=== PATIENT | female | born 1965 | race Caucasian/White ===

== ENCOUNTER 2016-05-30 21:51 | Emergency (ER) | payer OTHER ==
[2016-05-30 20:57] LABS: BASOPHIL# 0.1 X10e3 (0-0.3); BASOPHIL% 1.1 % (0-2.5); DIFF IND NO; EOSINOPHIL# 0.5 X10e3 (0-0.7); HEMOGLOBIN 12.3 gm/dL (12.0-16.0); LYMPHOCYTE# 3.2 X10e3 (1.0-3.5); LYMPHOCYTE% 27.1 % (17.0-45.0); MEAN CELL VOLUME 86.9 FL (83-96); MEAN CORPUSCULAR HEMOGLOBIN 28.1 PG (28-34); MEAN CORPUSCULAR HGB CONC 32.3 g/dL (30-36); MEAN PLATELET VOLUME 8.8 FL (6.5-11.5); MONOCYTE# 0.9 X10e3 (0-1.0); MONOCYTE% 7.3 % (3.0-12.0); NEUTROPHIL# 7.3 X10e3 (1.5-7.1); NEUTROPHIL% 60.5 % (40-75); PLATELET COUNT 307 X10e3 (140-420); RED BLOOD COUNT 4.38 X10e (3.90-5.30); RED CELL DISTRIBUTION WIDTH 13.3 % (11.0-15.5)
[2016-05-30 21:25] LABS: ALBUMIN SERUM 3.5 g/dL (3.5-5.0); BILIRUBIN, DIRECT 0.1 mg/dL (0.0-0.2); BILIRUBIN,INDIRECT 0.3 mg/dL (0.0-0.9); BILIRUBIN,TOTAL 0.4 mg/dL (0.2-2.0); CALCIUM SERUM 9.1 mg/dL (8.4-10.2); GLOM FILT RATE Estimated 66.1 mL/min (>60); POTASSIUM 3.6 mmol/L (3.5-5.1); PROTEIN TOTAL SERUM 7.1 g/dL (6.0-8.3)
[~2016-05-30 21:51] MED LIST: CYMBALTA30 MG PO; DESYREL50 MG PO; DIOVAN160 MG PO; FLEXERIL PO; GABAPENTIN300 MG PO; LEVAQUIN PO; LEVEMIR100 UNITS/ SUBQ; LISINOPRIL-HCTZ1 T19 PO; OMEPRAZOLE40 M1 PO; TIZANIDINE HCL2 MG PO; TOPAMAX PO
[2016-05-30 23:54] LABS: URINE SOURCE CLEAN CATCH
[2016-05-30 23:59] LABS: URINE APPEARANCE CLEAR; URINE BILIRUBIN NEG (NEG); URINE BLOOD NEG (NEG); URINE COLOR YELLOW; URINE GLUCOSE >1000 MG/DL (NEG); URINE KETONE NEG (NEG); URINE LEUKOCYTE ESTERASE NEG (NEG); URINE NITRATE NEG (NEG); URINE PROTEIN NEG (NEG); URINE SPECIFIC GRAVITY 1.031 (1.003-1.035); URINE UROBILINOGEN 0.2 MG/DL (NEG)
[2016-05-31 00:02] LABS: CULTURE INDICATED? NO
== END 2016-05-31 01:28 | disposition home or self-care (01) ==
LOC: CED 21:51
PROVIDERS: Emergency Medicine
DX: S93.402A Sprain of unspecified ligament of left ankle, initial encounter (principal); X58.XXXA Exposure to other specified factors, initial encounter; Y93.67 Activity, basketball; Y92.9 Unspecified place or not applicable
CPT/HCPCS: 29515; 74176; 80048; 80076; 81003; 82150; 82553; 83690; 83880; 84484; 84703; 85025; 96372; 99283; J0500; J1885; J2270; J2405

== ENCOUNTER 2016-06-02 04:36 | Emergency (ER) | payer OTHER ==
--- NOTE | ~2016-06-02 | EKG ---
PATIENT: RIK CORREIA UNIT #: [id number] Ventricular Rate: 101 BPM Atrial Rate: 101 BPM P-R Interval: 176 ms QRS Duration: 88 ms Q-T Interval: 358 ms QTC Calculation(Bezet): 464 ms P [place]: 52 degrees Calculated R [place]: -14 degrees Calculated T [place]: 47 degrees Diagnosis Line: Sinus tachycardia Diagnosis Line: Otherwise normal ECG Diagnosis Line: Diagnosis Line: Confirmed by XAVIER ONOFRE MD ([id number]) on 06/02/2016 Diagnosis Line: 4:41:49 PM INTERPRETING MD: KINGSTON SANON
[2016-06-02 05:49] LABS: POC - CKMB 1.5 ng/mL (0.0-7.9); POC - TROPONIN <0.05 ng/mL (<=0.05)
[2016-06-02 06:19] LABS: BASOPHIL# 0.1 X10e3 (0-0.3); BASOPHIL% 0.4 % (0-2.5); EOSINOPHIL# 0.2 X10e3 (0-0.7); EOSINOPHIL% 1.5 % (0.0-7.0); HEMATOCRIT 34.3 % (35.0-45.0); HEMOGLOBIN 11.1 gm/dL (12.0-16.0); LYMPHOCYTE# 2.8 X10e3 (1.0-3.5); MEAN CELL VOLUME 85.9 FL (83-96); MEAN CORPUSCULAR HEMOGLOBIN 27.9 PG (28-34); MEAN CORPUSCULAR HGB CONC 32.4 g/dL (30-36); MEAN PLATELET VOLUME 8.8 FL (6.5-11.5); MONOCYTE# 1.1 X10e3 (0-1.0); MONOCYTE% 7.1 % (3.0-12.0); NEUTROPHIL# 11.3 X10e3 (1.5-7.1); PLATELET COUNT 319 X10e3 (140-420); RED CELL DISTRIBUTION WIDTH 13.5 % (11.0-15.5); WHITE BLOOD COUNT 15.5 X10e3 (4.0-10.5)
[2016-06-02 06:20] LABS: DIFF IND YES
[2016-06-02 06:38] LABS: ALBUMIN SERUM 3.3 g/dL (3.5-5.0); ALKALINE PHOSPHATASE 70 U/L (32-92); ALT (SGPT) 15 U/L (10-40); AST (SGOT) 18 U/L (10-42); BILIRUBIN, DIRECT 0.1 mg/dL (0.0-0.2); BILIRUBIN,INDIRECT 0.3 mg/dL (0.0-0.9); BILIRUBIN,TOTAL 0.4 mg/dL (0.2-2.0); BLOOD UREA NITROGEN 26 mg/dL (9-23); CALCIUM SERUM 8.5 mg/dL (8.4-10.2); CARBON DIOXIDE 25 mmol/L (22-31); CHLORIDE 107 mmol/L (100-111); CREATININE SERUM 0.8 mg/dL (0.6-1.4); GLOM FILT RATE Estimated 86.6 mL/min (>60); GLUCOSE FASTING 51 mg/dL (70-110); POTASSIUM 3.1 mmol/L (3.5-5.1); PROTEIN TOTAL SERUM 6.6 g/dL (6.0-8.3); SALICYLATE <4.0 mg/dL; SODIUM 138 mmol/L (135-145)
[2016-06-02 06:39] LABS: ACETAMINOPHEN <10 ug/mL; ALCOHOL BLOOD <5 mg/dL (0)
[2016-06-02 07:26] LABS: PLATELET ESTIMATE NORMAL (NORMAL); RBC NORMAL YES
== END 2016-06-02 08:03 ==
LOC: CED 04:36
PROVIDERS: Emergency Medicine
DX: T47.1X2A Poisoning by other antacids and anti-gastric-secretion drugs, intentional self-harm, initial encounter (principal); T46.5X2A Poisoning by other antihypertensive drugs, intentional self-harm, initial encounter; Y92.9 Unspecified place or not applicable
CPT/HCPCS: 36415; 80048; 80076; 82553; 82947; 84484; 84703; 85025; 93005; 99285; G0480

== ENCOUNTER 2016-06-02 08:34 | Inpatient (IN) | payer OTHER ==
--- NOTE | ~2016-06-02 | HP ---
Unit #: [id number] #: [id number] Patient: NONI CORREIA [id number] [place] [address] [id number] I MR#: [id number] NAME: NONI CORREIA. ROOM: P204 Age: 51 Sex: F Admission Date: 06/02/2016 : 1965 Attending Physician: Donnell Breaux M.D. Admitting Physician: Donnell Breaux M.D. HISTORY AND PHYSICAL HISTORY OF PRESENT ILLNESS Noni is a 51 year old admitted to [address] [place] [address] with depression and verbalizing wanting to hurt herself. PAST MEDICAL HISTORY 1. Morbid obesity. 2. High blood pressure. 3. Diabetes mellitus, type 2. 4. History of CHI. 5. History of TIA's by patient report. 6. History of MS, diagnosed 1999, by patient's report. PAST SURGICAL HISTORY 1. Cholecystectomy. 2. Left ear. ALLERGIES Codeine, amlodipine, metformin, trazodone, Demerol, Seroquel, Plavix. SOCIAL HISTORY She denies cigarettes, alcohol and illicit drug use. FAMILY HISTORY Medically noncontributory. REVIEW OF SYSTEMS CONSTITUTIONAL: No fever or chills. HEENT: Denies any sore throat, ear pain or runny nose. CARDIOVASCULAR: Denies chest pain, irregular heart rhythm or palpitations. CHEST: Denies shortness of breath or cough. No hemoptysis. GASTROINTESTINAL: Denies nausea, vomiting, diarrhea or chronic constipation. ENDOCRINE: Denies history of increased thirst or urination. No recent significant weight loss or gain. GENITOURINARY: Denies dysuria, frequency, or hematuria. SKIN: Denies any rashes. HEMATOLOGIC: Denies history of increased bleeding or bruising. MUSCULOSKELETAL: Denies any hot, swollen joints. No generalized muscle pain. NEUROLOGIC: Denies problems with vision or speech. No frequent, severe headaches. No numbness, tingling or weakness in any extremities. Denies loss of bladder or bowel control. Unit #: [id number] #: [id number] Patient: NONI CORREIA CURRENT MEDICATIONS 1. Diovan 160 mg daily. 2. HCTZ 25 mg daily. 3. Protonix 40 mg daily. 4. Levemir 15 units q.h.s. 5. Diclofenac 50 mg b.i.d. 6. Bentyl 20 mg q.i.d. 7. Zofran 4 mg t.i.d. 8. NovoLog per sliding scale. 9. Effexor XR 75 mg daily. 10. Milk of Magnesia p.r.n. 11. Maalox p.r.n. 12. Tylenol p.r.n. 13. Nicotine patch 14 mg daily. 14. Zaroxolyn 2.5 mg daily. 15. Maxzide 25 one tab daily. 16. Bumex 1 mg Sunday, Sunday and Sunday. 17. KCL 20 mEq Sunday, Sunday and Sunday. PHYSICAL EXAMINATION GENERAL: Alert, obese, in no apparent distress. VITAL SIGNS: Blood pressure 148/84, heart rate 80, respirations 16, temperature 98.6. WEIGHT: 247. HEIGHT: 5 feet 6 inches. SKIN: Warm and dry without rash or lesion. HEENT: Normocephalic. TMs not viewed. Oral and nasal passages clear. Conjunctivae clear. PERRLA. EOMs intact. NECK: Supple without lymphadenopathy or thyromegaly. HEART: Regular rate and rhythm without murmur. LUNGS: Clear. ABDOMEN: Soft, nontender. : Not done. EXTREMITIES: No evidence of cyanosis or clubbing. Trace to 1+ edema bilateral lower extremities. NEUROLOGICAL: Grossly within normal limits. Cranial Nerves: II: Visual presley are intact. III, IV AND : Extraocular movements are intact. Pupils are equal, round and reactive to light. V: Facial sensation is grossly normal. VII: Facial movements and expression are normal. VIII: Auditory acuity grossly intact. IX, X: Uvula is midline. Phonation is normal. XI: Patient shrugs shoulders and turns head normally. XII: Tongue protrudes in the midline. Sensory and Motor Function: Sensory and motor sensation is grossly normal. Motor: moves all extremities well. Coordination: Gait is normal. Deep Tendon Reflexes: Intact. IMPRESSION Psychiatric admission. RECOMMENDATIONS PSYCHIATRIC: Per psychiatrist. MEDICAL: 1. See no contraindications to participate in facility's activities. 2. Dc Bumex, KCL, Zaroxolyn and Maxzide. Change Zofran and Bentyl to p.r.n. Unit #: [id number] #: [id number] Patient: NONI CORREIA MEDICAL PROGNOSIS Good. MEDICAL CONDITION Stable. Dictated by... Sarah Queen P.A.-C. for Alejo Haile/ayse TD: 06/02/2016 21:14 JOB #: [id number] HISTORY AND PHYSICAL Page 1 of 1 X Sarah Queen X HISTORY AND PHYSICAL
--- NOTE | ~2016-06-02 | DS ---
Unit #: [id number] #: [id number] Patient: NONI CORREIA [id number] [facility] [address] [place] [address] [id number] I MR#: [id number] NAME: NONI CORREIA. ROOM[facility] Age: 51 Sex: F Admission Date: 06/02/2016 : 1965 Discharge Date: 06/04/2016 Attending Physician: Donnell Breaux M.D. DISCHARGE SUMMARY REASON FOR ADMISSION Noni is a 51-year-old woman who reports multiple psychosocial stressors leading to an intentional overdose on an unknown medication. After the overdose, she was medically cleared at a local emergency room and [facility] DIAGNOSTIC STUDIES LABORATORY RESULTS: Please see hospital chart. HOSPITAL COURSE Noni was admitted and placed on suicide precautions. Her home medications for her multiple medical issues were restarted. She denied the need for antidepressant treatment and declined initiation of an antidepressant medication. She did attend some psychotherapy groups and activities, and was willing for referral to outpatient therapy at the time of discharge. She was able to contract for safety at that time. DISCHARGE DIAGNOSES AXIS I: Major depression. AXIS II: No diagnosis. AXIS III: Diabetes, hypertension, obesity, gastroesophageal reflux disease, chronic pain. AXIS IV: AXIS V: DISCHARGE INSTRUCTIONS Follow up with [facility] for therapy and consideration of medication. DISCHARGE MEDICATIONS None. CONDITION AT DISCHARGE Fair. PROGNOSIS Fair to good. DIET AND ACTIVITY Per primary care doctor. Unit #: [id number] #: [id number] Patient: NONI CORREIA Dictated by... Alejo Newman/cirilo TD: 07/01/2016 12:22 JOB #: [id number] DISCHARGE SUMMARY Page 1 of 1 X Donnell Breaux MD X DISCHARGE SUMMARY
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
--- NOTE | ~2016-06-02 | CO ---
Unit #: [id number] #: [id number] Patient: NONI CORREIA [id number] [place] [address] [id number] I MR#: [id number] NAME: NONI CORREIA ROOM: P204 Age: 51 Sex: F Admission Date: 06/02/2016 : 1965 Attending Physician: Donnell Breaux M.D. Consultation Date: 06/02/2016 CONSULTATION REPORT SUBJECTIVE Noni is a 51-year-old with history of type 2 diabetes mellitus. She has been noncompliant with her diabetic medications. We have been asked to assess and treat. PLAN Start routine NovoLog sliding scale and Levemir 15 units subcu q.h.s. Monitor Accu-Cheks a.c. and h.s. Noni knows she needs to follow up with PCP. Dictated by... Sarah Queen P.A.-C. for Alejo Haile/cirilo TD: 06/05/2016 17:27 JOB #: [id number] CONSULTATION REPORT Page 1 of 1 X Sarah Queen CONSULTATION REPORT
[2016-06-03 12:30] LABS: URINE APPEARANCE CLEAR; URINE BILIRUBIN NEG (NEG); URINE BLOOD NEG (NEG); URINE COLOR YELLOW; URINE GLUCOSE >1000 MG/DL (NEG); URINE KETONE NEG (NEG); URINE LEUKOCYTE ESTERASE NEG (NEG); URINE NITRATE NEG (NEG); URINE PROTEIN NEG (NEG); URINE SPECIFIC GRAVITY 1.021 (1.003-1.035); URINE UROBILINOGEN 0.2 MG/DL (NEG)
[2016-06-03 12:50] LABS: BASOPHIL# 0.1 X10e3 (0-0.3); BASOPHIL% 0.9 % (0-2.5); EOSINOPHIL# 0.5 X10e3 (0-0.7); EOSINOPHIL% 5.7 % (0.0-7.0); HEMATOCRIT 38.7 % (35.0-45.0); HEMOGLOBIN 12.4 gm/dL (12.0-16.0); LYMPHOCYTE# 2.7 X10e3 (1.0-3.5); LYMPHOCYTE% 30.3 % (17.0-45.0); MEAN CELL VOLUME 87.9 FL (83-96); MEAN CORPUSCULAR HEMOGLOBIN 28.2 PG (28-34); MEAN CORPUSCULAR HGB CONC 32.1 g/dL (30-36); MEAN PLATELET VOLUME 9.3 FL (6.5-11.5); MONOCYTE# 0.7 X10e3 (0-1.0); MONOCYTE% 7.6 % (3.0-12.0); NEUTROPHIL# 4.9 X10e3 (1.5-7.1); NEUTROPHIL% 55.5 % (40-75); PLATELET COUNT 324 X10e3 (140-420); RED CELL DISTRIBUTION WIDTH 13.6 % (11.0-15.5); WHITE BLOOD COUNT 8.9 X10e3 (4.0-10.5)
[2016-06-03 12:56] LABS: AMPHETAMINE NEG (NEG); BARBITURATES NEG (NEG); BENZODIAZEPINES NEG (NEG); COCAINE NEG (NEG); MARIJUANA NEG (NEG); OPIATES NEG (NEG); TRICYCLIC ANTIDEPRESSANTS NEG (NEG); U METHADONE NEG (NEG)
[2016-06-03 12:57] LABS: DIFF IND NO
[2016-06-03 13:16] LABS: ALBUMIN SERUM 3.3 g/dL (3.5-5.0); BILIRUBIN,TOTAL 0.2 mg/dL (0.2-2.0); BUN/CREATININE RATIO 22.5; CALCIUM SERUM 9.2 mg/dL (8.4-10.2); CREATININE SERUM 0.8 mg/dL (0.6-1.4); GLOM FILT RATE Estimated 86.6 mL/min (>60); POTASSIUM 4.6 mmol/L (3.5-5.1); PROTEIN TOTAL SERUM 6.3 g/dL (6.0-8.3); THYROID STIMULATING HORMONE 3.51 uIU/ml (0.34-5.60)
[2016-06-03 13:26] LABS: FREE THYROXIN (T4) 0.7 ng/dL (0.58-1.64)
== END 2016-06-04 15:41 | disposition home or self-care (01) | DRG 885 ==
LOC: P2S 08:34
PROVIDERS: Psychiatry & Neurology Psychiatry
DX: F33.2 Major depressive disorder, recurrent severe without psychotic features (principal); E66.01 Morbid (severe) obesity due to excess calories; I10 Essential (primary) hypertension; E11.9 Type 2 diabetes mellitus without complications; K21.9 Gastro-esophageal reflux disease without esophagitis; G89.29 Other chronic pain; Z86.73 Personal history of transient ischemic attack (TIA), and cerebral infarction without residual deficits; G35 Multiple sclerosis; Z88.5 Allergy status to narcotic agent; Z88.8 Allergy status to other drugs, medicaments and biological substances; F17.210 Nicotine dependence, cigarettes, uncomplicated
CPT/HCPCS: 80053; 80307; 81003; 82947; 84439; 84443; 85025

== ENCOUNTER 2016-06-29 23:33 | Emergency (ER) | payer OTHER ==
--- NOTE | ~2016-06-29 | EKG ---
PATIENT: RIK CORREIA UNIT #: [id number] Ventricular Rate: 99 BPM Atrial Rate: 99 BPM P-R Interval: 164 ms QRS Duration: 88 ms Q-T Interval: 358 ms QTC Calculation(Bezet): 459 ms P [place]: 61 degrees Calculated R [place]: -28 degrees Calculated T [place]: 46 degrees Diagnosis Line: Normal sinus rhythm Diagnosis Line: Poor R wave progression questionable lead position Diagnosis Line: or body habitus Diagnosis Line: Borderline ECG Diagnosis Line: When compared with ECG of 02-JUN-2016 04:31, Diagnosis Line: No significant change was found Diagnosis Line: Confirmed by IVAN UREÑA MD ([id number]) on Diagnosis Line: 06/30/2016 11:15:00 PM INTERPRETING MD: ROGELIO
[2016-06-29 23:05] LABS: BASOPHIL# 0.1 X10e3 (0-0.3); BASOPHIL% 0.7 % (0-2.5); DIFF IND NO; EOSINOPHIL# 0.4 X10e3 (0-0.7); EOSINOPHIL% 3.8 % (0.0-7.0); HEMOGLOBIN 12.7 gm/dL (12.0-16.0); LYMPHOCYTE# 3.3 X10e3 (1.0-3.5); LYMPHOCYTE% 30.6 % (17.0-45.0); MEAN CELL VOLUME 85.7 FL (83-96); MEAN CORPUSCULAR HGB CONC 32.6 g/dL (30-36); MEAN PLATELET VOLUME 8.9 FL (6.5-11.5); MONOCYTE# 0.7 X10e3 (0-1.0); MONOCYTE% 6.3 % (3.0-12.0); NEUTROPHIL# 6.3 X10e3 (1.5-7.1); NEUTROPHIL% 58.6 % (40-75); PLATELET COUNT 331 X10e3 (140-420); RED BLOOD COUNT 4.55 X10e (3.90-5.30); RED CELL DISTRIBUTION WIDTH 13.6 % (11.0-15.5); WHITE BLOOD COUNT 10.7 X10e3 (4.0-10.5)
[2016-06-29 23:10] LABS: POC - CKMB 1.6 ng/mL (0.0-7.9); POC - TROPONIN <0.05 ng/mL (<=0.05)
[2016-06-29 23:16] LABS: ALBUMIN SERUM 3.7 g/dL (3.5-5.0); ALKALINE PHOSPHATASE 79 U/L (32-92); ALT (SGPT) 20 U/L (10-40); AST (SGOT) 19 U/L (10-42); BILIRUBIN,TOTAL 0.6 mg/dL (0.2-2.0); BLOOD UREA NITROGEN 14 mg/dL (9-23); BUN/CREATININE RATIO 15.55; CALCIUM SERUM 8.8 mg/dL (8.4-10.2); CARBON DIOXIDE 27 mmol/L (22-31); CHLORIDE 104 mmol/L (100-111); CREATININE SERUM 0.9 mg/dL (0.6-1.4); GLOM FILT RATE Estimated 75.1 mL/min (>60); GLUCOSE FASTING 230 mg/dL (70-110); POTASSIUM 3.8 mmol/L (3.5-5.1); PROTEIN TOTAL SERUM 7.5 g/dL (6.0-8.3); SODIUM 139 mmol/L (135-145)
[2016-06-29 23:17] LABS: BILIRUBIN, DIRECT <0.1 mg/dL (0.0-0.2); BILIRUBIN,INDIRECT 0.5 mg/dL (0.0-0.9)
== END 2016-06-30 00:08 | disposition home or self-care (01) ==
LOC: CED 23:33
PROVIDERS: Emergency Medicine
DX: R07.89 Other chest pain (principal); Z88.2 Allergy status to sulfonamides; Z88.5 Allergy status to narcotic agent; Z88.8 Allergy status to other drugs, medicaments and biological substances
CPT/HCPCS: 36415; 80048; 80076; 82553; 84484; 85025; 93005; 96361; 96374; 96375; 99284; J0780; J1885; J2930

== ENCOUNTER 2016-07-13 16:11 | Emergency (ER) | payer OTHER ==
--- NOTE | ~2016-07-13 | CT71 ---
[facility] A Service of [facility] RADIOLOGY TEXT RESULTS PATIENT: RIK CORREIA LOCATION: [facility] : [birth year] UNIT #: [id number] AGE: [address]: Andrea Armendariz MD SEX: F ORDER DR: [id number] [place] [address] [facility]. [place], [place] [address] [id number] E MR#: [id number] Acc #: [id number] NAME: RIK CORREIA : 1965 SEX: F STUDY DATE/TIME: 07/13/2016 18:40 UNIT: [facility] ROOM: STUDY DESCRIPTION: CT Head Wo Contrast Attending Physician: Andrea Armendariz M.D. Ordering Physician: Andrea Armendariz M.D. Primary Care Physician: Cresencio Morrison M.D. MEDICAL IMAGING REPORT This report is preliminary unless electronic signature is present EXAM CT head without contrast 07/13/2016 HISTORY 51-year-old female with right-sided facial numbness and right leg and arm numbness beginning today at [address] head 02/01/2016 TECHNIQUE Routine unenhanced axial images performed through the brain. This CT exam was performed with one or more of the following radiation dose reduction techniques: automatic control, adjustment of mA and/or kV according to patient size, and iterative reconstruction. FINDINGS No hemorrhage, acute infarction, mass lesion, or abnormal extraaxial fluid collection. No midline shift or focal mass effect. Ventricular system normal in size and configuration. No acute bony abnormality. Extensive paranasal sinus mucosal thickening. Visualized mastoid air cells are clear. IMPRESSION 1. No acute intracranial abnormality. 2. Extensive paranasal sinus mucosal thickening. Dictated by... Bernardo Luna M.D. THIS IS AN ELECTRONICALLY VERIFIED REPORT Bernardo Luna M.D. at 07/17/2016 7:47 AM JKB/rnr [facility] A Service [facility] RADIOLOGY TEXT RESULTS PATIENT: RIK CORREIA LOCATION: [facility] #: [id number] : [birth year] UNIT #: [id number] AGE: [address]: Andrea Armendariz MD SEX: F ORDER DR: TD: 07/14/2016 01:18 JOB #: [id number] MEDICAL IMAGING REPORT Page 1 of 1 COPY
--- NOTE | ~2016-07-13 | EKG ---
PATIENT: RIK CORREIA UNIT #: [id number] Ventricular Rate: 88 BPM Atrial Rate: 88 BPM P-R Interval: 178 ms QRS Duration: 96 ms Q-T Interval: 376 ms QTC Calculation(Bezet): 454 ms P [place]: 68 degrees Calculated R [place]: -26 degrees Calculated T [place]: 44 degrees Diagnosis Line: Normal sinus rhythm Diagnosis Line: Normal ECG Diagnosis Line: When compared with ECG of 29-JUN-2016 22:06, Diagnosis Line: No significant change was found Diagnosis Line: Confirmed by XAVIER ONOFRE MD ([id number]) on 07/14/2016 Diagnosis Line: 8:06:40 PM INTERPRETING MD: KINGSTON SANON
--- NOTE | ~2016-07-13 | ER ---
Unit #: [id number] #: [id number] Patient: RIK CEE [id number] [address] [place], [place] [address] [id number] E MR#: [id number] NAME: RKI CEE ROOM: Sex: F Age: 51 : 1965 Service Date: 07/13/2016 Attending Physician: Andrea Armendariz M.D. Primary Care Physician: Cresencio Morrison M.D. EMERGENCY DEPT PHYSICIAN NOTE HISTORY Please see the written T sheet for the full details of the encounter. Ms. Cee is a 51-year-old woman who presented to the emergency department today with complaint of right-sided headache, right face paresthesias, as well as paresthesias in the right arm and right leg that had been present since 2 in the morning on 07/13/2016. The patient reported a history of previous stroke and multiple sclerosis; however, these conditions could not be independently verified and are mentioned as self-reported in previous H and P's when the patient has been admitted in the past. I questioned the patient where her stroke had been diagnosed, and she replied that it had been some years ago at [facility]. The hospital was contacted for records; however, they were yet to be obtained at the time of this dictation. The patient demonstrated a largely normal neurologic exam with the exception to altered light touch on the right side. Standard blood work was ordered, as well as a CT without contrast, to address the patient's complaint. She was given standard IV medications for the treatment of migraine headache. All blood work performed, as well as CT head, was essentially all within normal limits. After these had resulted, the patient was reexamined. She did report relief of her headache, however, stated that the paresthesias on the right side were still present. On-call neurology was consulted who recommended that the patient undergo MRI tonight to rule out acute stroke. If the MRI was negative, she could be discharged home; if positive, she would require admission to this facility. When the nurse went in to fill out the MRI screening form for the patient, she stated she did not want the test, as, "I just had an MRI last month, and it was normal." I explained to the patient why the neurologist had recommended this test in light of her new symptoms today. She understood but still continued to refuse the MRI. She was able to understand and voice the risk of undiagnosed stroke possibly resulting in permanent disability. She is recommended to follow up with her primary doctor for additional testing and/or previously established neurologist for these issues. She was encouraged to return to the emergency department should she change her mind and desire further workup for this condition. Dictated by... Alejo Arce/patrizia Unit #: [id number] #: [id number] Patient: RIK CEE TD: 07/14/2016 07:57 JOB #: [id number] EMERGENCY DEPT PHYSICIAN NOTE Page 1 of 1 X Andrea Armendariz MD EMERGENCY DEPARTMENT REPORT
[2016-07-13 18:09] LABS: POC - CKMB 1.2 ng/mL (0.0-7.9); POC - TROPONIN <0.05 ng/mL (<=0.05)
[2016-07-13 18:22] LABS: URINE SOURCE CLEAN CATCH
[2016-07-13 18:26] LABS: BASOPHIL% 0.2 % (0-2.5); EOSINOPHIL# 0.5 X10e3 (0-0.7); EOSINOPHIL% 4.3 % (0.0-7.0); HEMATOCRIT 37.2 % (35.0-45.0); HEMOGLOBIN 11.8 gm/dL (12.0-16.0); LYMPHOCYTE% 24.7 % (17.0-45.0); MEAN CELL VOLUME 86.2 FL (83-96); MEAN CORPUSCULAR HEMOGLOBIN 27.4 PG (28-34); MEAN CORPUSCULAR HGB CONC 31.7 g/dL (30-36); MEAN PLATELET VOLUME 9.6 FL (6.5-11.5); MONOCYTE# 0.8 X10e3 (0-1.0); MONOCYTE% 6.9 % (3.0-12.0); NEUTROPHIL# 7.8 X10e3 (1.5-7.1); NEUTROPHIL% 63.9 % (40-75); PLATELET COUNT 270 X10e3 (140-420); RED BLOOD COUNT 4.31 X10e (3.90-5.30); RED CELL DISTRIBUTION WIDTH 14.1 % (11.0-15.5); WHITE BLOOD COUNT 12.2 X10e3 (4.0-10.5)
[2016-07-13 18:29] LABS: DIFF IND NO
[2016-07-13 18:31] LABS: URINE APPEARANCE CLEAR; URINE BILIRUBIN NEG (NEG); URINE BLOOD NEG (NEG); URINE COLOR YELLOW; URINE GLUCOSE 500 MG/DL (NEG); URINE KETONE NEG (NEG); URINE LEUKOCYTE ESTERASE NEG (NEG); URINE NITRATE NEG (NEG); URINE PROTEIN NEG (NEG); URINE SPECIFIC GRAVITY 1.024 (1.003-1.035)
[2016-07-13 18:41] LABS: CULTURE INDICATED? NO
[2016-07-13 18:43] LABS: AMPHETAMINE NEG (NEG); BARBITURATES NEG (NEG); BENZODIAZEPINES NEG (NEG); COCAINE NEG (NEG); MARIJUANA NEG (NEG); OPIATES NEG (NEG); TRICYCLIC ANTIDEPRESSANTS POS (NEG); U METHADONE NEG (NEG)
[2016-07-13 18:45] LABS: INR 0.9; PARTIAL THROMBOPLASTIN TIME 24.5 SECONDS (23.5-31.3); PROTHROMBIN TIME (PATIENT) 9.7 SECONDS (9.6-11.5)
[2016-07-13 19:05] LABS: ALBUMIN SERUM 3.6 g/dL (3.5-5.0); BILIRUBIN, DIRECT 0.1 mg/dL (0.0-0.2); BILIRUBIN,TOTAL 0.1 mg/dL (0.2-2.0); CALCIUM SERUM 8.7 mg/dL (8.4-10.2); CREATININE SERUM 0.6 mg/dL (0.6-1.4); POTASSIUM 3.9 mmol/L (3.5-5.1); PROTEIN TOTAL SERUM 6.9 g/dL (6.0-8.3)
== END 2016-07-13 19:52 | disposition left against medical advice (07) ==
LOC: CED 16:11
PROVIDERS: Emergency Medicine
DX: R55 Syncope and collapse (principal); R20.9 Unspecified disturbances of skin sensation; R51 Headache; F32.9 Major depressive disorder, single episode, unspecified; E11.9 Type 2 diabetes mellitus without complications; I10 Essential (primary) hypertension; G43.909 Migraine, unspecified, not intractable, without status migrainosus; Z90.49 Acquired absence of other specified parts of digestive tract; Z88.5 Allergy status to narcotic agent; Z88.2 Allergy status to sulfonamides; Z88.1 Allergy status to other antibiotic agents; Z88.8 Allergy status to other drugs, medicaments and biological substances
CPT/HCPCS: 36415; 70450; 80048; 80076; 80307; 81003; 82553; 82947; 84484; 84703; 85025; 85610; 85730; 93005; 96361; 96374; 96375; 99284; J0780; J1200; J1885

== ENCOUNTER → 2016-08-18 | Outpatient (CLI) | payer OTHER ==
--- NOTE | ~2016-08-18 | MY29 ---
[facility] A Service of [facility] RADIOLOGY TEXT RESULTS PATIENT: RIK CORREIA LOCATION: [facility] : 69 UNIT #: [id number] AGE: [address]: Cresencio Morrison MD SEX: F ORDER DR: [id number] [facility] [address]. [place], [place] [address] [id number] O MR#: [id number] Acc #: [id number] NAME: RIK CORREIA : 1965 SEX: F STUDY DATE/TIME: 08/18/2016 14:54 UNIT: [facility] ROOM: STUDY DESCRIPTION: MY SOLO SCREENING W/ CAD BILAT Attending Physician: Cresencio Morrison M.D. Referring Physician: Cresencio Morrison M.D. Ordering Physician: Cresencio Morrison M.D. Primary Care Physician: Cresencio Morrison M.D. MEDICAL IMAGING REPORT This report is preliminary unless electronic signature is present EXAM Digital screening mammogram, 08/18/16, [facility]. HISTORY 51-year-old woman, baseline mammogram. No risk elevation. FINDINGS Digital imaging of each breast was completed utilizing a two-view examination of each breast in craniocaudal and mediolateral-oblique projections. Review and interpretation of digital mammograms include a second review in conjunction with FDA-approved CAD device. There is a normal parenchymal presentation bilaterally consistent with the patient's age. There are no breast masses imaged and no parenchymal asymmetry is visualized. There are no suspicious microcalcifications and I see no focal architectural disturbance. IMPRESSION Negative screening digital mammogram. One-year followup recommended. Patients over the age of 40 are entered into a reminder system with target due date for the next mammogram. A result letter will also be sent to the patient. BIRADS: 1 Negative. ADDENDUM Breast parenchyma is fatty replaced. Dictated by... Priyank Cabrera M.D. THIS IS AN ELECTRONICALLY VERIFIED REPORT Priyank Cabrera M.D. at 08/21/2016 8:[address] [facility] A Service of [facility] RADIOLOGY TEXT RESULTS PATIENT: RIK CORREIA [id number] : [birth year] UNIT #: [id number] AGE: [address]: Cresencio Morrison MD SEX: F ORDER DR: Zoe TD: 08/18/2016 18:42 JOB #: [id number] MEDICAL IMAGING REPORT Page 1 of 1 COPY
== END | disposition home or self-care (01) ==
LOC: CWCC 14:38
DX: Z12.31 Encounter for screening mammogram for malignant neoplasm of breast (principal); R92.8 Other abnormal and inconclusive findings on diagnostic imaging of breast
CPT/HCPCS: G0202